=== PATIENT | male | born 1940 | race Caucasian/White ===

== ENCOUNTER 2017-08-02 10:41 | Emergency (ER) | payer OTHER ==
[2017-08-02 11:16] VITALS: BP 121/69; PULSE 55; RESP 16; TEMP 98.2; O2SAT 95
[2017-08-02] MEDS ORDERED: TRIA1CAP7 PO (11:29)
[2017-08-02] MEDS ORDERED: TAMS5CAP PO (11:29)
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
--- NOTE | 2017-08-02 17:02 | RADRPT ---
EXAM DATE/TIME: 08/02/2017 15:55 [facility] COMPARISON: PELVIS AP ONLY, August 02, 2017, 12:02. INDICATIONS : Pain. MEDICAL HISTORY : Benign prostatic hyperplasia, (BPH) A-fib. SURGICAL HISTORY : Hemorrhoidectomy. Fusion, lumbar. Hernia. Shoulder. Bi-lateral knee replacements. ENCOUNTER: Subsequent ACUITY: 1 day PAIN SCORE: 5/10 LOCATION: Right hip. TECHNIQUE: Multiplanar, multisequence MRI examination was performed without contrast. FINDINGS: The right hip joint demonstrates no acute finding or significant arthropathy. Bone marrow signal is w ithin normal limits. No fracture is identified. Hardware is present in the inferior lumbar spine and pelvis. There is edema in the posterior aspect of the proximal thigh involving the proximal hamstring musculature. The tendinous attachment sites of the hamstring muscles to the ischial tuberosity demon strates increased signal. The edema extends to the inferior most aspect of the images obtained. The a nterior compartment of the proximal thigh and the adductor musculature demonstrates no abnormality. CONCLUSION: 1. Severe intramuscular edema within the proximal hamstrings muscles. The edema and abnormal changes extend to the ischial tuberosity. This may represent an avulsion injury or muscle tear. 2. Please refer to femur MRI for further description. Tong Stewart MD on August 02, 2017 at 16:55 Board Certified Radiologist. This report was verified electronically.
--- NOTE | 2017-08-02 17:36 | RADRPT ---
EXAM DATE/TIME: 08/02/2017 15:55 [facility] COMPARISON: MRI HIP RIGHT W/O CONTRAST, August 02, 2017, 15:55. FEMUR RIGHT (AP & LAT/2VWS), August 02, 2017 , 12:03. INDICATIONS : Pain. MEDICAL HISTORY : Benign prostatic hyperplasia, (BPH) A-fib. SURGICAL HISTORY : Hemorrhoidectomy. Fusion, lumbar. Hernia. Shoulder. Bi-lateral knee replacements. ENCOUNTER: Subsequent ACUITY: 1 day PAIN SCORE: 5/10 LOCATION: Right thigh. TECHNIQUE: Multiplanar multisequence MRI examination of the thigh was performed without contrast. FINDINGS: Bone marrow signal of the right femur is within normal limits. No fracture is seen. There is severe e julio and fluid within the posterior aspect of the proximal thigh with intramuscular fluid in the hams trings musculature. The fluid extends to the right ischial tuberosity at the attachment site. No orga nized fluid collection is identified. CONCLUSION: Severe edema in the proximal hamstring musculature extending to the ischial tuberosity. This likely r epresents proximal hamstring muscle tear. Tong Stewart MD on August 02, 2017 at 17:32 Board Certified Radiologist. This report was verified electronically.
[2017-08-02] MEDS ORDERED: TRAM50 PO (17:53)
[2017-08-02] MEDS ORDERED: MOBI15TA PO (17:53)
[2017-08-02] MEDS ORDERED: ACETAMINOPHEN/HYDROcodone 325 MG/5 MG TAB PO ONE (18:00)
[2017-08-02 18:30] VITALS: BP 120/85; PULSE 56; RESP 16; O2SAT 98
[2017-08-02] MEDS ORDERED: KETOROLAC TROMETHAMINE 60 MG/2 ML (IM) VIAL IM ONE (18:30)
== END 2017-08-02 18:57 | disposition home or self-care (01) ==
LOC: NEPC 10:41
DX: S73.101A Unspecified sprain of right hip, initial encounter (principal); S76.911A Strain of unspecified muscles, fascia and tendons at thigh level, right thigh, initial encounter; Z79.899 Other long term (current) drug therapy; W22.8XXA Striking against or struck by other objects, initial encounter
CPT/HCPCS: 72170; 73552; 73718; 73721; 99284; E0113; J1885